=== PATIENT | female | born 1925 | race Caucasian/White ===

== ENCOUNTER 2017-03-26 14:31 | Emergency (ER) | payer MEDICARE, OTHER ==
[~2017-03-26] VITALS: Ht 162.6 cm; Wt 75.0 kg
[~2017-03-26 14:31] MED LIST: B/P MED PO; ENOX40P SQ; FERR324T4 PO; LORT5TAB PO
[2017-03-26 14:47] VITALS: PULSE 89; RESP 16; TEMP 98.5; O2SAT 96
[2017-03-26] MEDS ORDERED: NITR1SUB3 SL (15:07)
[2017-03-26] MEDS ORDERED: GABA100C4 PO (15:07)
[2017-03-26] MEDS ORDERED: ENAL20TA PO (15:07)
[2017-03-26] MEDS ORDERED: APIX5TAB PO (15:07)
[2017-03-26] MEDS ORDERED: OXYB5TAB8 PO (15:07)
[2017-03-26] MEDS ORDERED: ATOR20TA15 PO (15:07)
[2017-03-26] MEDS ORDERED: METF500T PO (15:07)
[2017-03-26] MEDS ORDERED: PRED5TAB PO (15:07)
[2017-03-26] MEDS ORDERED: ISOS60TA PO (15:07)
[2017-03-26] MEDS ORDERED: VANCOMYCIN INJ 1,000 MG in SODIUM CHLOR 0.9% 250 ML INJ 250 ML IV STA (15:09)
[2017-03-26] MEDS ORDERED: PIPERACIL-TAZO 4.5 GM PREMIX 100 ML IV STA (15:09)
--- NOTE | 2017-03-26 15:23 | PD ---
HPI . Leg redness Chief Complaint: Edema Time Seen by Provider: 15:09 Travel History International Travel<30 days: No Contact w/Intl Traveler<30days: No Traveled to known affect area: No History of Present Illness HPI This patient is brought in by her daughter with chief complaint of swelling and redness of her right lower extremity. The history is obtained from the patient and her daughter. The daughter states that she started complaining with pain in her leg yesterday and the daughter looked at it down to to be red and swollen. She took her to several urgent care centers this morning for treatment. She eventually came here. The daughter states that she has been sitting with her leg in a dependent position and all morning which has exacerbated swelling. Usually, her swelling gets better with elevation. She does have chronic edema of both lower extremities. She also has history of previous cellulitis. The patient denies any fever. She does not feel sick. She rates her pain as 6/10. PFSH Past Medical History Arthritis: Yes Cardiovascular Problems: Yes Diabetes: Yes Endocrine: Yes Genitourinary: No Hypertension: Yes Musculoskeletal: Yes Neurologic: No Reproductive: No Respiratory: No Past Surgical History Abdominal Surgery: Yes (JAYLENE/APPENECTOMY) Cardiac Surgery: No Ear Surgery: No Endocrine Surgery: No Eye Surgery: No Genitourinary Surgery: No Gynecologic Surgery: Yes (HYSTERECTOMY) Oral Surgery: Yes (TONSILLECTOMY,THROAT SX FORPOLYPS) Thoracic Surgery: No Social History Alcohol Use: No Tobacco Use: No Substance Use: No Allergies-Medications (Allergen,Severity, Reaction): Coded Allergies: No Known Allergies (Unverified Allergy, Unknown, 03/26/17) Reported Meds & Prescriptions Reported Meds & Active Scripts Active Reported Nitroglycerin SL (Nitroglycerin) 0.4 Mg Subl 0.4 Mg SL DIRECTED PRN ONE TABLET UNDER THE TONGUE NEEDED FOR CHEST PAIN, MAY REPEAT EVERY FIVE MINUTES FOR A TOTAL OF 3 DOSES OR CALL 911 IF NO RELIEF Gabapentin 100 Mg Cap 100 Mg PO DIRECTED Ditropan (Oxybutynin Chloride) 5 Mg Tab 5 Mg PO Q12HR Enalapril (Enalapril Maleate) 20 Mg Tab 20 Mg PO BID Isosorbide Mononitrate ER (Isosorbide Mononitrate) 60 Mg Tab 60 Mg PO DAILY Atorvastatin (Atorvastatin Calcium) 20 Mg Tab 20 Mg PO DAILY Eliquis (Apixaban) 5 Mg Tab 5 Mg PO BID Prednisone 5 Mg Tab 5 Mg PO BID Metformin (Metformin HCl) 500 Mg Tab 500 Mg PO BIDPC Review of Systems Except as stated in HPI: all other systems reviewed are Neg General / Constitutional: No: Fever, Chills Gastrointestinal: No: Nausea, Vomiting Musculoskeletal: Positive: Edema Skin: Positive Change in Pigmentation Neurologic: No: Weakness, Dizziness Physical Exam Narrative GENERAL: Awake and alert and in no acute distress. SKIN: Warm and dry. Erythema, warmth, swelling and tenderness of the right lower extremity about the mid lower leg to about the ankle. HEAD: Normocephalic/atraumatic. EYES: Pupils are equal. Extraocular movements are intact. NECK: Normal range of motion. CARDIOVASCULAR: Regular rate and rhythm. RESPIRATORY: Nonlabored respirations. MUSCULOSKELETAL: Atraumatic. NEUROLOGICAL: Nonfocal. PSYCHIATRIC: Appropriate mood and affect. Data Data Last Documented VS Vital Signs Date Time Temp Pulse Resp B/P (MAP) Pulse Ox O2 Delivery O2 Flow Rate FiO2 03/26/17 15:41 96 Room Air 03/26/17 14:47 98.5 89 16 Orders Orders Sepsis Workup Initiated (03/26/17 ) Complete Blood Count With Diff (03/26/17 15:09) Comprehensive Metabolic Panel (03/26/17 15:09) Lactic Acid Sepsis Protocol (03/26/17 15:09) Blood Culture (03/26/17 15:09) Blood Glucose (03/26/17 15:09) Ecg Monitoring (03/26/17 15:09) Iv Access Insert/Monitor (03/26/17 15:09) Oximetry (03/26/17 15:09) Oxygen Administration (03/26/17 15:09) Piperacil-Tazo 4.5 Gm Premix (Zosyn 4.5 (03/26/17 15:09) Vancomycin Inj (Vancomycin Inj) (03/26/17 15:09) Labs Laboratory Tests Test 03/26/17 15:20 White Blood Count 10.7 TH/MM3 Red Blood Count 4.17 MIL/MM3 Hemoglobin 12.4 GM/DL Hematocrit 39.3 % Mean Corpuscular Volume 94.2 FL Mean Corpuscular Hemoglobin 29.6 PG Mean Corpuscular Hemoglobin Concent 31.4 % Red Cell Distribution Width 14.3 % Platelet Count 205 TH/MM3 Mean Platelet Volume 7.8 FL Neutrophils (%) (Auto) 80.0 % Lymphocytes (%) (Auto) 10.8 % Monocytes (%) (Auto) 7.7 % Eosinophils (%) (Auto) 0.3 % Basophils (%) (Auto) 1.2 % Neutrophils # (Auto) 8.6 TH/MM3 Lymphocytes # (Auto) 1.2 TH/MM3 Monocytes # (Auto) 0.8 TH/MM3 Eosinophils # (Auto) 0.0 TH/MM3 Basophils # (Auto) 0.1 TH/MM3 CBC Comment DIFF FINAL Differential Comment Blood Urea Nitrogen 18 MG/DL Creatinine 0.85 MG/DL Random Glucose 199 MG/DL Total Protein 6.7 GM/DL Albumin 3.0 GM/DL Calcium Level 9.2 MG/DL Alkaline Phosphatase 67 U/L Aspartate Amino Transf (AST/SGOT) 41 U/L Alanine Aminotransferase (ALT/SGPT) 73 U/L Total Bilirubin 0.5 MG/DL Sodium Level 140 MEQ/L Potassium Level 4.3 MEQ/L Chloride Level 103 MEQ/L Carbon Dioxide Level 27.9 MEQ/L Anion Gap 9 MEQ/L Estimat Glomerular Filtration Rate 63 ML/MIN Lactic Acid Level 2.7 mmol/L MDM Medical Decision Making Medical Screen Exam Complete: Yes Emergency Medical Condition: Yes Differential Diagnosis My differential diagnosis includes but is not limited to localized wound infection, cellulitis, abscess Narrative Course This patient presents with redness, warmth, swelling and tenderness of her right lower extremity. It has typical appearance of cellulitis. There is no crepitus. She does not appear ill. She does not meet SIRS criteria. CBC & BMP Diagram 03/26/17 15:20 Total Protein 6.7, Albumin 3.0 L, Calcium Level 9.2, Alkaline Phosphatase 67, Aspartate Amino Transf (AST/SGOT) 41 H, Alanine Aminotransferase (ALT/SGPT) 73 H , Total Bilirubin 0.5 LA 2.7 Sepsis Criteria Severe Sepsis (+one): Lactate >2 Diagnosis Primary Impression: Cellulitis of right lower leg Patient Instructions: Cellulitis (DC), General Instructions Med/Other Pt SpecificInfo: Prescription(s) given Scripts Doxycycline Hyclate (Doxycycline Hyclate) 100 Mg Cap 100 MG PO BID for Infection, #20 CAP 0 Refills Prov: Phyllis Floyd MD 03/26/17 Disposition: 01 DISCHARGE HOME Condition: Stable Phyllis Floyd MD Mar 26, 2017 15:22
[2017-03-26 15:45] LABS: AUTOMATED NEUTROPHIL # 8.6 TH/MM3 (1.8-7.7); BASOPHIL # 0.1 TH/MM3 (0-0.2); BASOPHIL % 1.2 % (0.0-2.0); EOSINOPHIL % 0.3 % (0.0-4.0); HEMATOCRIT 39.3 % (35.0-46.0); HEMOGLOBIN 12.4 GM/DL (11.6-15.3); LYMPH % 10.8 % (9.0-44.0); LYMPHOCYTE # 1.2 TH/MM3 (1.0-4.8); MEAN CELL VOLUME 94.2 FL (80.0-100.0); MEAN CORPUSCULAR HEMOGLOBIN 29.6 PG (27.0-34.0); MEAN CORPUSCULAR HGB CONC 31.4 % (32.0-36.0); MEAN PLATELET VOLUME 7.8 FL (7.0-11.0); MONO % 7.7 % (0.0-8.0); MONOCYTE # 0.8 TH/MM3 (0-0.9); PLATELET COUNT 205 TH/MM3 (150-450); RED BLOOD COUNT 4.17 MIL/MM3 (4.00-5.30); RED CELL DISTRIBUTION WIDTH 14.3 % (11.6-17.2); WHITE BLOOD COUNT 10.7 TH/MM3 (4.0-11.0)
[2017-03-26 15:59] LABS: CHLORIDE 103 MEQ/L (98-107); SODIUM (NA) 140 MEQ/L (136-145)
[2017-03-26 16:03] LABS: CALCIUM 9.2 MG/DL (8.5-10.1)
[2017-03-26 16:04] LABS: BICARBONATE 27.9 MEQ/L (21.0-32.0); BLOOD UREA NITROGEN 18 MG/DL (7-18); GLUCOSE,RANDOM 199 MG/DL (74-106)
[2017-03-26 16:07] LABS: ALT (GPT) 73 U/L (10-53); AST (GOT) 41 U/L (15-37); CREATININE 0.85 MG/DL (0.50-1.00); GLOMERULAR FILTRATION RATE 63 ML/MIN (>89)
[2017-03-26 16:08] LABS: LACTIC ACID SEPSIS PROTOCOL 2.7 mmol/L (0.4-2.0); TOTAL BILIRUBIN ADULT 0.5 MG/DL (0.2-1.0); TOTAL PROTEIN 6.7 GM/DL (6.4-8.2)
[2017-03-26 16:10] LABS: ALKALINE PHOSPHATASE 67 U/L (45-117)
[2017-03-26] MEDS ORDERED: DOXY100C PO (16:20)
== END 2017-03-26 17:50 | disposition home or self-care (01) ==
LOC: PHED 14:31
DX: L03.115 Cellulitis of right lower limb (principal); M19.90 Unspecified osteoarthritis, unspecified site; E11.9 Type 2 diabetes mellitus without complications; I10 Essential (primary) hypertension; Z79.899 Other long term (current) drug therapy
CPT/HCPCS: 80053; 83605; 85025; 87040; 96365; 96367; 99284; J2543; J3370; J7050